=== PATIENT | male | born 1940 | race Caucasian/White ===

== ENCOUNTER 2016-09-02 04:15 | Emergency (ER) | payer MEDICARE ==
[~2016-09-02] VITALS: Ht 177.8 cm; Wt 91.0 kg
[2016-09-02 04:18] VITALS: BP 193/91; PULSE 76; RESP 18; TEMP 98.6; O2SAT 97
--- NOTE | 2016-09-02 04:28 | PD ---
HPI Chief Complaint: AMS Time Seen by Provider: 04:18 Travel History International Travel<30 days: No Contact w/Intl Traveler<30days: No History of Present Illness HPI Patient is a 76-year-old male with history of CAD, pacemaker, htn, hyperlipidemia, cardiac stents presents to emergency room with EMS and his with complaints of altered mental status. As per patient's , patient has not been acting like his normal self for the past 2 hours. Reports that he has not been able to go to sleep and has been talking to himself about selling his airline tickets. Reports that he was fine all night and the family even played a board game. Reports that he did not drink alcohol or use any drugs. Reports that he does have history of uti's - concern for possible uti. PFSH Past Medical History Cardiac Catheterization: Yes High Cholesterol: Yes Congestive Heart Failure: Yes Hypertension: Yes Past Surgical History Cardiac Surgery: Yes Coronary Stent: Yes Pacemaker: Yes Social History Alcohol Use: No Tobacco Use: No Substance Use: No Allergies-Medications (Allergen,Severity, Reaction): Coded Allergies: No Known Allergies (Unverified , 09/02/16) Reported Meds & Prescriptions Reported Meds & Active Scripts Active Reported Aspirin 81 Mg Chew 81 Mg CHEW DAILY Atorvastatin (Atorvastatin Calcium) 40 Mg Tab 40 Mg PO HS Metoprolol Tartrate 37.5 Mg Tab 37.5 Mg PO BID Eye Vitamins & Minerals (Multiple Vitamins W/ Minerals) 1 Tab Tab 1 Tab PO DAILY Lisinopril 40 Mg Tab 40 Mg PO DAILY Once Daily (Multivitamin) 1 Each Tablet 1 Tab PO DAILY Omeprazole 20 Mg Tab 20 Mg PO DAILY Naprosyn (Naproxen) 500 Mg Tab 440 Mg PO BID Review of Systems ROS Limitations: Altered Mental Status General / Constitutional: No: Fever Eyes: No: Visual changes HENT: No: Headaches Cardiovascular: No: Chest Pain or Discomfort Respiratory: No: Shortness of Breath Gastrointestinal: No: Abdominal Pain Genitourinary: No: Dysuria Musculoskeletal: No: Pain Skin: No Rash Neurologic: No: Weakness Psychiatric: No: Depression Endocrine: No: Polydipsia Hematologic/Lymphatic: No: Easy Bruising Physical Exam Narrative GENERAL: NAD, nontoxic SKIN: Focused skin assessment warm/dry. HEAD: Atraumatic. Normocephalic. EYES: Pupils equal and round. No scleral icterus. No injection or drainage. ENT: No nasal bleeding or discharge. Mucous membranes pink and moist. NECK: Trachea midline. No JVD. CARDIOVASCULAR: Regular rate and rhythm. No murmur appreciated. RESPIRATORY: No accessory muscle use. Clear to auscultation. Breath sounds equal bilaterally. GASTROINTESTINAL: Abdomen soft, non-tender, nondistended. Hepatic and splenic margins not palpable. MUSCULOSKELETAL: No obvious deformities. No clubbing. No cyanosis. No edema. NEUROLOGICAL: Awake and alert to person place and time. No obvious cranial nerve deficits. Motor grossly within normal limits. Normal speech. PSYCHIATRIC: Appropriate mood and affect; insight and judgment normal. Data Data Last Documented VS Vital Signs Date Time Temp Pulse Resp B/P Pulse Ox O2 Delivery O2 Flow Rate FiO2 09/02/16 06:11 70 18 167/77 97 Room Air 09/02/16 04:18 98.6 Orders Electrocardiogram (09/02/16 04:17) Complete Blood Count With Diff (09/02/16 04:17) Comprehensive Metabolic Panel (09/02/16 04:17) Creatine Kinase (Cpk) (09/02/16 04:17) Prothrombin Time / Inr (Pt) (09/02/16 04:17) Act Partial Throm Time (Ptt) (09/02/16 04:17) Troponin I (09/02/16 04:17) Urinalysis - C+S If Indicated (09/02/16 04:17) Chest, Single Ap (09/02/16 04:17) Ct Brain W/O Iv Contrast(Rout) (09/02/16 04:17) Blood Glucose (09/02/16 04:17) Ecg Monitoring (09/02/16 04:17) Iv Access Insert/Monitor (09/02/16 04:17) Oximetry (09/02/16 04:17) Drug Screen, Random Urine (09/02/16 04:20) Alcohol (Ethanol) (09/02/16 04:17) Hydralazine Inj (Apresoline Inj) (09/02/16 05:15) Labs Laboratory Tests Test 09/02/16 04:25 White Blood Count 6.0 TH/MM3 Red Blood Count 5.08 MIL/MM3 Hemoglobin 14.2 GM/DL Hematocrit 43.7 % Mean Corpuscular Volume 86.1 FL Mean Corpuscular Hemoglobin 28.0 PG Mean Corpuscular Hemoglobin 32.5 % Concent Red Cell Distribution Width 15.1 % Platelet Count 153 TH/MM3 Mean Platelet Volume 9.1 FL Neutrophils (%) (Auto) 61.4 % Lymphocytes (%) (Auto) 26.8 % Monocytes (%) (Auto) 7.4 % Eosinophils (%) (Auto) 3.9 % Basophils (%) (Auto) 0.5 % Neutrophils # (Auto) 3.7 TH/MM3 Lymphocytes # (Auto) 1.6 TH/MM3 Monocytes # (Auto) 0.4 TH/MM3 Eosinophils # (Auto) 0.2 TH/MM3 Basophils # (Auto) 0.0 TH/MM3 CBC Comment DIFF FINAL Differential Comment Prothrombin Time 12.2 SEC Prothromb Time International 1.1 RATIO Ratio Activated Partial 24.5 SEC Thromboplast Time Urine Color YELLOW Urine Turbidity CLEAR Urine pH 7.0 Urine Specific [place] 1.025 Urine Protein TRACE mg/dL Urine Glucose (UA) NEG mg/dL Urine Ketones NEG mg/dL Urine Occult Blood MOD Urine Nitrite NEG Urine Bilirubin NEG Urine Urobilinogen LESS THAN 2.0 MG/DL Urine Leukocyte Esterase NEG Urine RBC 182 /hpf Urine WBC 2 /hpf Urine Squamous Epithelial 1 /hpf Cells Urine Mucus FEW /lpf Microscopic Urinalysis Comment CATH-CULT NOT IND Sodium Level 145 MEQ/L Potassium Level 3.8 MEQ/L Chloride Level 110 MEQ/L Carbon Dioxide Level 27.0 MEQ/L Anion Gap 8 MEQ/L Blood Urea Nitrogen 13 MG/DL Creatinine 0.97 MG/DL Estimat Glomerular Filtration 75 ML/MIN Rate Random Glucose 96 MG/DL Calcium Level 8.9 MG/DL Total Bilirubin 0.6 MG/DL Aspartate Amino Transf 27 U/L (AST/SGOT) Alanine Aminotransferase 28 U/L (ALT/SGPT) Alkaline Phosphatase 48 U/L Total Creatine Kinase 80 U/L Troponin I 0.03 NG/ML Total Protein 7.0 GM/DL Albumin 4.0 GM/DL Urine Opiates Screen NEG Urine Barbiturates Screen NEG Urine Amphetamines Screen NEG Urine Benzodiazepines Screen NEG Urine Cocaine Screen NEG Urine Cannabinoids Screen NEG Ethyl Alcohol Level LESS THAN 3 MG/DL MDM Medical Decision Making Medical Screen Exam Complete: Yes Emergency Medical Condition: Yes Interpretation(s) EKG at 0418: Ventricular paced at 71bpm, qt/qtc: 435/457, no acute st or t wave changes Differential Diagnosis Differential includes metabolic encephalopathy, cva, tia, acs, arrhythmia, electrolyte abnormality, UTI Narrative Course Patient is a 76 year old male who presents to ER with his with c/o of altered mental status. Patient is here with his family for vacation, reports that for the past 2 hours, patient has been pacing in their hotel room and patient has been mumbling to himself. heard him talking about selling his plane tickets. Reports "this is not normal for my ." Patient is alert and oriented x 3. Patient denies headache or dizziness. Patient denies chest pain or shortness of breath. He denies abdominal pain, nausea or vomiting. Patient with no complaints at this time. BS 108, EKG ventricular paced at 71bpm patient placed on a gambling monitor, Ct of head ordered, lab work ordered as well as UA. will monitor patient Vital Signs Date Time Temp Pulse Resp B/P Pulse Ox O2 Delivery O2 Flow Rate FiO2 09/02/16 04:27 Room Air 09/02/16 04:18 98.6 76 18 193/91 97 Laboratory Tests Test 09/02/16 04:25 White Blood Count 6.0 TH/MM3 (4.0-11.0) Red Blood Count 5.08 MIL/MM3 (4.50-5.90) Hemoglobin 14.2 GM/DL (13.0-17.0) Hematocrit 43.7 % (39.0-51.0) Mean Corpuscular Volume 86.1 FL (80.0-100.0) Mean Corpuscular Hemoglobin 28.0 PG (27.0-34.0) Mean Corpuscular Hemoglobin 32.5 % Concent (32.0-36.0) Red Cell Distribution Width 15.1 % (11.6-17.2) Platelet Count 153 TH/MM3 (150-450) Mean Platelet Volume 9.1 FL (7.0-11.0) Neutrophils (%) (Auto) 61.4 % (16.0-70.0) Lymphocytes (%) (Auto) 26.8 % (9.0-44.0) Monocytes (%) (Auto) 7.4 % (0.0-8.0) Eosinophils (%) (Auto) 3.9 % (0.0-4.0) Basophils (%) (Auto) 0.5 % (0.0-2.0) Neutrophils # (Auto) 3.7 TH/MM3 (1.8-7.7) Lymphocytes # (Auto) 1.6 TH/MM3 (1.0-4.8) Monocytes # (Auto) 0.4 TH/MM3 (0-0.9) Eosinophils # (Auto) 0.2 TH/MM3 (0-0.4) Basophils # (Auto) 0.0 TH/MM3 (0-0.2) CBC Comment DIFF FINAL Differential Comment Prothrombin Time 12.2 SEC (9.8-11.6) Prothromb Time International 1.1 RATIO Ratio Activated Partial 24.5 SEC Thromboplast Time (24.3-30.1) Sodium Level 145 MEQ/L (136-145) Potassium Level 3.8 MEQ/L (3.5-5.1) Chloride Level 110 MEQ/L (98-107) Carbon Dioxide Level 27.0 MEQ/L (21.0-32.0) Anion Gap 8 MEQ/L (5-15) Blood Urea Nitrogen 13 MG/DL (7-18) Creatinine 0.97 MG/DL (0.60-1.30) Estimat Glomerular Filtration 75 ML/MIN (>89) Rate Random Glucose 96 MG/DL (74-106) Calcium Level 8.9 MG/DL (8.5-10.1) Total Bilirubin 0.6 MG/DL (0.2-1.0) Aspartate Amino Transf 27 U/L (15-37) (AST/SGOT) Alanine Aminotransferase 28 U/L (12-78) (ALT/SGPT) Alkaline Phosphatase 48 U/L (45-117) Total Creatine Kinase 80 U/L (39-308) Troponin I 0.03 NG/ML (0.02-0.05) Total Protein 7.0 GM/DL (6.4-8.2) Albumin 4.0 GM/DL (3.4-5.0) Urine Opiates Screen NEG (NEG) Urine Barbiturates Screen NEG (NEG) Urine Amphetamines Screen NEG (NEG) Urine Benzodiazepines Screen NEG (NEG) Urine Cocaine Screen NEG (NEG) Urine Cannabinoids Screen NEG (NEG) Ethyl Alcohol Level LESS THAN 3 MG/DL (0-5) Last Impressions Head CT 09/02/16 6826 Signed Impressions: Service Date/Time: Friday, September 02, 2016 04:24 - CONCLUSION: Atrophy. No evidence of acute intracranial pathology. Johnson Lorenzana MD Chest X-Ray 09/02/16 0417 Signed Impressions: Service Date/Time: Friday, September 02, 2016 04:24 - CONCLUSION: 1. Cardiomegaly. No acute pulmonary disease. Johnson Lorenzana MD CBC: wnl BMP: wnl Coags: wnl UDS: neg UA pending Laboratory Tests Test 09/02/16 04:25 White Blood Count 6.0 TH/MM3 (4.0-11.0) Red Blood Count 5.08 MIL/MM3 (4.50-5.90) Hemoglobin 14.2 GM/DL (13.0-17.0) Hematocrit 43.7 % (39.0-51.0) Mean Corpuscular Volume 86.1 FL (80.0-100.0) Mean Corpuscular Hemoglobin 28.0 PG (27.0-34.0) Mean Corpuscular Hemoglobin 32.5 % Concent (32.0-36.0) Red Cell Distribution Width 15.1 % (11.6-17.2) Platelet Count 153 TH/MM3 (150-450) Mean Platelet Volume 9.1 FL (7.0-11.0) Neutrophils (%) (Auto) 61.4 % (16.0-70.0) Lymphocytes (%) (Auto) 26.8 % (9.0-44.0) Monocytes (%) (Auto) 7.4 % (0.0-8.0) Eosinophils (%) (Auto) 3.9 % (0.0-4.0) Basophils (%) (Auto) 0.5 % (0.0-2.0) Neutrophils # (Auto) 3.7 TH/MM3 (1.8-7.7) Lymphocytes # (Auto) 1.6 TH/MM3 (1.0-4.8) Monocytes # (Auto) 0.4 TH/MM3 (0-0.9) Eosinophils # (Auto) 0.2 TH/MM3 (0-0.4) Basophils # (Auto) 0.0 TH/MM3 (0-0.2) CBC Comment DIFF FINAL Differential Comment Prothrombin Time 12.2 SEC (9.8-11.6) Prothromb Time International 1.1 RATIO Ratio Activated Partial 24.5 SEC Thromboplast Time (24.3-30.1) Urine Color YELLOW (YELLW/STRAW) Urine Turbidity CLEAR (CLEAR) Urine pH 7.0 (5.0-8.5) Urine Specific [place] 1.025 (1.002-1.035) Urine Protein TRACE mg/dL (NEG-TRACE) Urine Glucose (UA) NEG mg/dL (NEG) Urine Ketones NEG mg/dL (NEG) Urine Occult Blood MOD (NEG) Urine Nitrite NEG (NEG) Urine Bilirubin NEG (NEG) Urine Urobilinogen LESS THAN 2.0 MG/DL (LESS THAN 2.0) Urine Leukocyte Esterase NEG (NEG) Urine RBC 182 /hpf (0-3) Urine WBC 2 /hpf (0-5) Urine Squamous Epithelial 1 /hpf (0-5) Cells Urine Mucus FEW /lpf (OCC) Microscopic Urinalysis Comment CATH-CULT NOT IND Sodium Level 145 MEQ/L (136-145) Potassium Level 3.8 MEQ/L (3.5-5.1) Chloride Level 110 MEQ/L (98-107) Carbon Dioxide Level 27.0 MEQ/L (21.0-32.0) Anion Gap 8 MEQ/L (5-15) Blood Urea Nitrogen 13 MG/DL (7-18) Creatinine 0.97 MG/DL (0.60-1.30) Estimat Glomerular Filtration 75 ML/MIN (>89) Rate Random Glucose 96 MG/DL (74-106) Calcium Level 8.9 MG/DL (8.5-10.1) Total Bilirubin 0.6 MG/DL (0.2-1.0) Aspartate Amino Transf 27 U/L (15-37) (AST/SGOT) Alanine Aminotransferase 28 U/L (12-78) (ALT/SGPT) Alkaline Phosphatase 48 U/L (45-117) Total Creatine Kinase 80 U/L (39-308) Troponin I 0.03 NG/ML (0.02-0.05) Total Protein 7.0 GM/DL (6.4-8.2) Albumin 4.0 GM/DL (3.4-5.0) Urine Opiates Screen NEG (NEG) Urine Barbiturates Screen NEG (NEG) Urine Amphetamines Screen NEG (NEG) Urine Benzodiazepines Screen NEG (NEG) Urine Cocaine Screen NEG (NEG) Urine Cannabinoids Screen NEG (NEG) Ethyl Alcohol Level LESS THAN 3 MG/DL (0-5) UA with mod blood, 182 rbc, negative ketones, negative leuk esterase. Patient with no flank pain. Patient currently alert and oriented 3, reports that his symptoms may have been due to taking Ambien tonight for sleep aid. Patient with no complaints, patient reports that he feels 100% better. Patient reports that he felt great this whole time, reports that "I am not sure why I am here." Patient's is at bedside, reports that patient is back to baseline. I reviewed all labs and studies with patient and his family members in detail. I offered them observation overnight in the hospital for further evaluation of AMS. Patient refuses admission and would like to be discharged. Patient's reports that she feels comfortable taking him home if all the lab work appears benign. will bring patient back to the emergency rooms should he have return of symptoms. Patient will follow-up with his primary care doctor and will return to the emergency with needed. Diagnosis Primary Impression: Hematuria Qualified Code: R31.9 - Hematuria, unspecified type Additional Impression: Altered mental status, unspecified Patient Instructions: General Instructions Additional Instructions: Please provide patient with a copy of his lab work and studies at discharge Return to the emergency room symptoms worsen or progress Return to the emergency room as needed Please stop taking Ambien Disposition: 01 DISCHARGE HOME Condition: Stable Lyric Craig DO Sep 02, 2016 04:28
[2016-09-02 04:41] LABS: AUTOMATED NEUTROPHIL # 3.7 TH/MM3 (1.8-7.7); BASOPHIL % 0.5 % (0.0-2.0); EOSINOPHIL # 0.2 TH/MM3 (0-0.4); EOSINOPHIL % 3.9 % (0.0-4.0); HEMATOCRIT 43.7 % (39.0-51.0); HEMO FLAGS DIFF FINAL; LYMPH % 26.8 % (9.0-44.0); LYMPHOCYTE # 1.6 TH/MM3 (1.0-4.8); MEAN CELL VOLUME 86.1 FL (80.0-100.0); MEAN CORPUSCULAR HGB CONC 32.5 % (32.0-36.0); MONO % 7.4 % (0.0-8.0); NEUT % 61.4 % (16.0-70.0); PLATELET COUNT 153 TH/MM3 (150-450); RED BLOOD COUNT 5.08 MIL/MM3 (4.50-5.90); RED CELL DISTRIBUTION WIDTH 15.1 % (11.6-17.2)
[2016-09-02 04:49] LABS: AMPHETAMINE, URINE NEG (NEG); BARBITURATES, URINE NEG (NEG); COCAINE, URINE NEG (NEG)
[2016-09-02 04:59] LABS: APTT (PATIENT) 24.5 SEC (24.3-30.1); INTERNATIONAL NORMALIZED RATIO 1.1 RATIO; PROTHROMBIN TIME - PATIENT 12.2 SEC (9.8-11.6)
[2016-09-02 05:05] LABS: ALT (GPT) 28 U/L (12-78); ANION GAP 8 MEQ/L (5-15); AST (GOT) 27 U/L (15-37); BLOOD UREA NITROGEN 13 MG/DL (7-18); CHLORIDE 110 MEQ/L (98-107); GLOMERULAR FILTRATION RATE 75 ML/MIN (>89); POTASSIUM 3.8 MEQ/L (3.5-5.1); SODIUM (NA) 145 MEQ/L (136-145)
[2016-09-02 05:09] LABS: ALKALINE PHOSPHATASE 48 U/L (45-117); TOTAL BILIRUBIN ADULT 0.6 MG/DL (0.2-1.0)
[2016-09-02 05:11] LABS: CREATINE KINASE 80 U/L (39-308)
[2016-09-02] MEDS ORDERED: hydrALAZINE HCL 20 MG/ML VIAL IV PUSH ONE (05:15)
--- NOTE | 2016-09-02 05:19 | RADRPT ---
EXAM DATE/TIME: 09/02/2016 04:24 [facility] COMPARISON: No previous studies available for comparison. INDICATIONS : Syncope MEDICAL HISTORY : Cardiovascular disease. SURGICAL HISTORY : Pacemaker. Open heart surgery. ENCOUNTER: Initial ACUITY: 1 day PAIN SCORE: 0/10 LOCATION: Bilateral chest FINDINGS: The cardiac silhouette is normal in transverse diameter. Median sternotomy wires are present. A bipol ar pacemaker is in place via a left sided approach. The lungs are free of acute parenchymal opacity. No effusions are identified. CONCLUSION: 1. Cardiomegaly. No acute pulmonary disease. Johnson Lorenzana MD on September 02, 2016 at 5:17 Board Certified Radiologist. This report was verified electronically.
--- NOTE | 2016-09-02 05:21 | RADRPT ---
EXAM DATE/TIME: 09/02/2016 04:24 [facility] COMPARISON: No previous studies available for comparison. INDICATIONS : Altered mental status. Slurred speech. RADIATION DOSE: 56.35 CTDIvol (mGy) MEDICAL HISTORY : Hypertension. Congestive heart failure. SURGICAL HISTORY : Pacemaker. Coronary artery stent. ENCOUNTER: Initial ACUITY: 1 day PAIN SCALE: 0/10 LOCATION: cranial TECHNIQUE: Multiple contiguous axial images were obtained of the head. Using automated exposure control and adj ustment of the mA and/or kV according to patient size, radiation dose was kept as low as reasonably a chievable to obtain optimal diagnostic quality images. DICOM format image data is available electro nically for review and comparison. FINDINGS: Noncontrast axial head CT demonstrates the ventricles to be enlarged with a prominent sulcal pattern compatible with atrophy. No acute intracranial hemorrhage, acute cortical infarction, mass or midline shift is seen. Posterior fossa structures are unremarkable. Bone windows demonstrate no abnormality. CONCLUSION: Atrophy. No evidence of acute intracranial pathology. Johnson Lorenzana MD on September 02, 2016 at 5:18 Board Certified Radiologist. This report was verified electronically.
[2016-09-02 05:38] VITALS: BP 209/95; PULSE 67; RESP 18; O2SAT 95
[2016-09-02] MEDS ORDERED: ASPI81CH CHEW (05:38)
[2016-09-02] MEDS ORDERED: ATOR40TA16 PO (05:38)
[2016-09-02] MEDS ORDERED: MULT1TAB93 PO (05:38)
[2016-09-02] MEDS ORDERED: LISI40TA PO (05:38)
[2016-09-02] MEDS ORDERED: OMEP20TA PO (05:38)
[2016-09-02] MEDS ORDERED: NAPR500 PO (05:38)
[2016-09-02] MEDS ORDERED: METO-424 PO (05:38)
[2016-09-02] MEDS ORDERED: ONCETAB7 PO (05:38)
[2016-09-02 06:10] LABS: BLOOD, URINE MOD (NEG); COMMENT (UR) CATH-CULT NOT IND; CULTURE IF INDICATED CATH CULTURE NOT IND; GLUCOSE,URINE NEG (NEG); KETONE, URINE NEG (NEG); MUCUS URINE FEW /lpf (OCC); NITRITE,URINE NEG (NEG); SQUAMOUS EPITHELIAL CELL URINE 1 /hpf (0-5); URINE COLOR YELLOW (YELLW/STRAW)
[2016-09-02 06:11] VITALS: BP 167/77; PULSE 70; RESP 18; O2SAT 97
--- NOTE | 2016-09-04 18:16 | EKG ---
Date Performed: 09/02/2016 Time Performed: 04:18:51 PTAGE: 76 years EKG: ELECTRONIC VENTRICULAR PACEMAKER ABNORMAL RHYTHM ECG NO PREVIOUS TRACING DOCTOR: Sharan Newman Interpretating Date/Time 09/04/2016 18:13:10
== END 2016-09-02 06:45 | disposition home or self-care (01) ==
LOC: NEPC 04:15
DX: R31.9 Hematuria, unspecified (principal); R41.82 Altered mental status, unspecified; I11.0 Hypertensive heart disease with heart failure; I50.9 Heart failure, unspecified; E78.00 Pure hypercholesterolemia, unspecified
CPT/HCPCS: 70450; 71010; 80053; 80307; 81001; 82550; 84484; 85025; 85610; 85730; 93005; 96374; 99285; J0360